=== PATIENT | female | born 1965 | race Caucasian/White ===

== ENCOUNTER 2020-08-16 10:11 | Inpatient (IN) | payer SELFPAY | END 2020-08-16 15:29 | disposition other institution (70) | DRG 951 | LOC: ICU 10:11 | PROVIDERS: ADMIT Internal Medicine; ATTEND Internal Medicine | DX: Z00.00 Encounter for general adult medical examination without abnormal findings (principal) | CPT/HCPCS: 36415; G0378 ==

== ENCOUNTER 2020-08-22 09:52 | Inpatient (IN) | payer SELFPAY | END 2020-08-22 15:10 | disposition home or self-care (01) | DRG 951 | LOC: MED 09:52 | PROVIDERS: ADMIT Internal Medicine; ATTEND Internal Medicine | DX: Z00.00 Encounter for general adult medical examination without abnormal findings (principal) | CPT/HCPCS: 36415; G0378 ==